=== PATIENT | male | born 1990 | race Asian ===

== ENCOUNTER 2020-06-21 19:33 | Emergency (ER) | payer OTHER, SELFPAY ==
[~2020-06-21] VITALS: Ht 180.3 cm; Wt 88.6 kg
[2020-06-21] MEDS ORDERED: LIDOCAINE 5% (LIDODERM) PATCH TD ONE (20:50)
[2020-06-21] MEDS ORDERED: diazePAM 10 MG TAB PO ONE (20:50)
[2020-06-21] MEDS ORDERED: KETOROLAC 60MG 2ML VIAL IM ONE (20:50)
[2020-06-21] MEDS ORDERED: **NOTE PATIENT COMMENT** MISC XX SCH (21:00)
[2020-06-21] MEDS ORDERED: NORCO 5/325MG TABLET (BULK FOR ED) PO ONE (22:25)
[2020-06-21] MEDS ORDERED: NAPR-837 PO (22:27)
[2020-06-21] MEDS ORDERED: VALI10TA PO ×2 (22:27→22:31)
[2020-06-21 22:43] VITALS: BP 111/57
== END 2020-06-21 22:45 | disposition home or self-care (01) ==
LOC: M ED 19:33
DX: M54.5 Low back pain (principal)
CPT/HCPCS: 96372; 99283; J1885